=== PATIENT | female | born 1980 | race Caucasian/White ===

== ENCOUNTER 2023-05-10 18:15 | Emergency (ER) | payer MEDICAID ==
[~2023-05-10] VITALS: Ht 162.6 cm; Wt 74.8 kg
[2023-05-10 18:31] VITALS: BP 153/119; PULSE 71; RESP 18; TEMP 97.6; O2SAT 100
[2023-05-10] MEDS ORDERED: LID5T TP (21:50)
[2023-05-10] MEDS ORDERED: CYCL-711 PO (21:50)
[2023-05-10] MEDS ORDERED: IBUP-2213 PO (21:50)
[2023-05-10] MEDS: KETOROLAC 30 MG/ML VIAL IM ONE (21:55)
[2023-05-10] MEDS: LIDOCAINE 5% 1 EA PATCH TP ONE (21:55)
[2023-05-10 22:19] LABS: APPEARANCE,URINE CLEAR (CLEAR); BILIRUBIN,URINE NEGATIVE (NEGATIVE); BLOOD, URINE TRACE-I (NEGATIVE); COLOR,URINE YELLOW (YELLOW); LEUKOCYTE ESTERASE ,URINE NEGATIVE (NEGATIVE); NITRITE, URINE NEGATIVE (NEGATIVE); PROTEIN,URINE NEGATIVE (NEGATIVE); UGLUCOSE NEGATIVE (NEGATIVE); UROBILINOGEN,URINE 0.2 EU/dL (0.2 - 1)
[2023-05-10 22:45] LABS: BACTERIA,URINE OCCASSIONAL /HPF (None Seen); RBC,URINE 0-5 /HPF (0-5); SQUAMOUS EPITHELIAL CELL,UR 4-10 (MOD) /LPF (0-3 (FEW)); WBC,URINE 0-5 /HPF (0-5)
== END 2023-05-10 22:02 | disposition home or self-care (01) ==
LOC: MED 18:15
DX: S16.1XXA Strain of muscle, fascia and tendon at neck level, initial encounter (principal); S09.90XA Unspecified injury of head, initial encounter; M25.521 Pain in right elbow; M54.6 Pain in thoracic spine; Z79.899 Other long term (current) drug therapy; Y04.0XXA Assault by unarmed brawl or fight, initial encounter; Y92.89 Other specified places as the place of occurrence of the external cause; Y93.89 Activity, other specified; Y99.8 Other external cause status
CPT/HCPCS: 81001; 81025; 96372; 99283; J1885